=== PATIENT | female | born 1990 | race Caucasian/White ===

== ENCOUNTER 2019-10-22 07:34 | Observation (INO) | payer BC ==
[~2019-10-22] VITALS: Ht 165.1 cm; Wt 100.0 kg
[2019-10-22 07:39] VITALS: BP 108/71
[2019-10-22] MEDS ORDERED: PREN-182 PO (10:55)
[2019-10-22] MEDS ORDERED: FOLI0.4T2 MT (10:55)
== END 2019-10-22 11:18 | disposition home or self-care (01) ==
LOC: ER 07:34 → 8 EST LDRP 10:13 → L&D 10:33
PROVIDERS: ADMIT Obstetrics & Gynecology; ATTEND Obstetrics & Gynecology
DX: O36.8130 Decreased fetal movements, third trimester, not applicable or unspecified (principal); Z3A.34 34 weeks gestation of pregnancy
CPT/HCPCS: 59025; 76815; 76817; 76818; 99281; G0378

== ENCOUNTER 2019-10-26 16:26 | Inpatient (IN) | payer BC ==
[~2019-10-26] VITALS: Ht 165.1 cm; Wt 99.8 kg
[~2019-10-26 16:26] MED LIST: FOLI0.4T2 MT; PREN-182 PO
[2019-10-26] MEDS ORDERED: SODIUM CHLORIDE 0.9% 1,000 ML IV ONE (16:58)
[2019-10-26] MEDS ORDERED: ACETAMINOPHEN 325MG TABLET PO STA (16:58)
[2019-10-26 17:36] LABS: BASOPHILS % 0.3 % (0.0-2.0); HEMATOCRIT. 35.7 % (36.0-48.0); HEMOGLOBIN. 12.3 g/dL (12.0-16.0); LYMPHOCYTES % 15.6 % (20.0-50.0); MEAN CORPUSCULAR HEMOGLOBIN 30.1 pg (28.0-32.0); MEAN CORPUSCULAR VOLUME 87.5 fL (81.0-99.0); MEAN PLATELET VOLUME 8.4 fl (7.4-10.4); MONOCYTES % 3.8 % (2.0-8.0); NEUTROPHILS % 80.3 % (40.0-76.0); PLATELET 186 x1000/uL (130-400); RED BLOOD CELL COUNT 4.09 mill/uL (4.2-5.4); RED CELL DISTRIBUTION WIDTH 14.5 % (11.6-14.6)
[2019-10-26 17:38] LABS: CLARITY URINE CLOUDY (CLEAR); COLOR URINE DARK YELLOW (YELLOW); KETONES URINE 3+ (NEGATIVE); LEUKOCYTE ESTERASE URINE 2+ (NEGATIVE); NITRITE URINE NEGATIVE (NEGATIVE); OCCULT BLOOD URINE NEGATIVE (NEGATIVE); PH URINE 5.5 (4.5-8.0); PROTEIN URINE 1+ (NEGATIVE); SPECIFIC GRAVITY URINE 1.021 (1.005-1.030)
[2019-10-26 17:42] LABS: CHLORIDE 108 mEq/L (98-107)
[2019-10-26 17:44] LABS: INR 0.9; PROTHROMBIN TIME 9.4 sec (9.6-11.0)
[2019-10-26] MEDS ORDERED: ACETAMINOPHEN 325MG TABLET PO ONE (17:45)
[2019-10-26] MEDS ORDERED: CEFTRIAXONE 1 G PREMIX 50 ML IV ONE (18:15)
[2019-10-26] MEDS: SODIUM CHLORIDE 0.9% 1,000 ML IV SCH (21:08)
[2019-10-26] MEDS ORDERED: ONDANSETRON HCL 4MG/2ML INJ IV ONE (21:15)
[2019-10-26] MEDS ORDERED: FAMOTIDINE 20MG/2ML VIAL IV ONE (22:00)
[2019-10-27 01:15] VITALS: BP 107/57
[2019-10-27 04:56] VITALS: BP 122/70
[2019-10-27] MEDS: ACETAMINOPHEN 325MG TABLET PO PRN ×3 (05:11→19:14)
[2019-10-27 06:34] LABS: BASOPHILS % 0.5 % (0.0-2.0); HEMOGLOBIN. 10.8 g/dL (12.0-16.0); LYMPHOCYTES % 14.7 % (20.0-50.0); MEAN CORPUSCULAR HEMOGLOBIN 30.1 pg (28.0-32.0); MEAN CORPUSCULAR VOLUME 86.7 fL (81.0-99.0); MEAN PLATELET VOLUME 8.3 fl (7.4-10.4); MONOCYTES % 2.5 % (2.0-8.0); NEUTROPHILS % 82.3 % (40.0-76.0); PLATELET 182 x1000/uL (130-400); RED BLOOD CELL COUNT 3.58 mill/uL (4.2-5.4); RED CELL DISTRIBUTION WIDTH 14.1 % (11.6-14.6)
[2019-10-27 06:51] LABS: CHLORIDE 110 mEq/L (98-107)
[2019-10-27 08:00] VITALS: BP 120/72
[2019-10-27] MEDS ORDERED: POTASSIUM CHLORIDE 20MEQ TABLET SR PO NR (08:15)
[2019-10-27] MEDS: FAMOTIDINE 20MG/2ML VIAL IV SCH (08:40)
[2019-10-27] MEDS: SODIUM CHLORIDE 0.9% 1,000 ML IV SCH (09:58)
[2019-10-27 12:00] VITALS: BP 122/68
[2019-10-27] MEDS: ONDANSETRON HCL 4MG/2ML INJ IV PRN (13:08)
[2019-10-27 16:00] VITALS: BP 117/65
[2019-10-27] MEDS ORDERED: ALBUTEROL 6.7GM HFA INHALER ORI PRN (17:00)
[2019-10-27] MEDS ORDERED: CEFTRIAXONE 1 G PREMIX 50 ML IV SCH (18:00)
[2019-10-27] MEDS: CEFTRIAXONE 1,000 MG in DEXTROSE 5% WATER 50 ML IV SCH (18:50)
[2019-10-27 20:00] VITALS: BP 122/75
[2019-10-27] MEDS: GUAIFENESIN 600MG ER TABLET PO SCH (20:39)
[2019-10-28] VITALS: BP 115/71
[2019-10-28] MEDS: ACETAMINOPHEN 325MG TABLET PO PRN ×4 (02:36→21:32)
[2019-10-28 04:00] VITALS: BP 117/68
[2019-10-28] MEDS: SODIUM CHLORIDE 0.9% 1,000 ML IV SCH ×2 (04:50→13:19)
[2019-10-28 08:00] VITALS: BP 127/84
[2019-10-28] MEDS: ONDANSETRON HCL 4MG/2ML INJ IV PRN ×2 (08:37→17:14)
[2019-10-28] MEDS: GUAIFENESIN 600MG ER TABLET PO SCH ×2 (08:37→20:29)
[2019-10-28] MEDS: FAMOTIDINE 20MG/2ML VIAL IV SCH (08:37)
[2019-10-28 09:56] LABS: CHLORIDE 111 mEq/L (98-107)
[2019-10-28] MEDS: LOPERAMIDE HCL 2MG CAPSULE PO PRN ×2 (11:05→17:09)
[2019-10-28 12:00] VITALS: BP 114/75
[2019-10-28 12:58] LABS: HEPATITIS B SURFACE ANTIGEN NEGATIVE
[2019-10-28 13:28] LABS: HEPATITIS A AB IGM NEGATIVE (NEGATIVE)
[2019-10-28 16:00] VITALS: BP 105/76
[2019-10-28] MEDS: CEFTRIAXONE 1,000 MG in DEXTROSE 5% WATER 50 ML IV SCH (17:09)
[2019-10-28 20:00] VITALS: BP 100/55
[2019-10-29] VITALS: BP 100/62
[2019-10-29] MEDS: SODIUM CHLORIDE 0.9% 1,000 ML IV SCH (02:20)
[2019-10-29 04:00] VITALS: BP 106/70
[2019-10-29 08:00] VITALS: BP 106/61
[2019-10-29] MEDS: FAMOTIDINE 20MG/2ML VIAL IV SCH (09:10)
[2019-10-29] MEDS: GUAIFENESIN 600MG ER TABLET PO SCH ×2 (09:11→20:01)
[2019-10-29 12:00] VITALS: BP 110/79
[2019-10-29] MEDS: PREDNISONE 20MG TABLET PO SCH (15:16)
[2019-10-29 16:00] VITALS: BP 107/67
[2019-10-29] MEDS: CEFTRIAXONE 1,000 MG in DEXTROSE 5% WATER 50 ML IV SCH (17:30)
[2019-10-29 20:00] VITALS: BP 108/76
[2019-10-30] VITALS: BP 114/70
[2019-10-30 04:00] VITALS: BP 105/52
[2019-10-30 08:00] VITALS: BP 147/94
[2019-10-30] MEDS: FAMOTIDINE 20MG/2ML VIAL IV SCH (09:16)
[2019-10-30] MEDS: GUAIFENESIN 600MG ER TABLET PO SCH (09:16)
[2019-10-30] MEDS: PREDNISONE 20MG TABLET PO SCH (09:17)
[2019-10-30 12:00] VITALS: BP 105/63
[2019-10-30 16:00] VITALS: BP 117/80
[2019-10-30] MEDS: CEFTRIAXONE 1,000 MG in DEXTROSE 5% WATER 50 ML IV SCH (17:33)
[2019-10-30] MEDS ORDERED: PRED10TA PO (18:53)
[2019-10-30] MEDS ORDERED: GUAI600T44 PO (18:53)
[2019-10-30] MEDS ORDERED: PRED5TAB PO (18:53)
[2019-10-30] MEDS ORDERED: TOPUD PO (18:53)
[2019-10-30] MEDS ORDERED: P20 PO (18:53)
[2019-10-30] MEDS ORDERED: IMOD PO (18:53)
[2019-10-30] MEDS ORDERED: ONDA4VIA22 IV (18:53)
[2019-10-30] MEDS ORDERED: ALBU6.7H9 ORI (18:53)
[2019-10-30 20:24] VITALS: BP 104/67
== END 2019-10-30 21:18 | disposition home or self-care (01) | DRG 831 ==
LOC: ER 16:41 → EDBEDREQTM 17:59 → EDBEDREQ 17:59 → MICUSO 19:15 → EDBEDREQ 20:00 → 7WST 23:24
PROVIDERS: ADMIT Obstetrics & Gynecology; ATTEND Obstetrics & Gynecology
DX: O75.3 Other infection during labor (principal); U07.1 COVID-19; J12.89 Other viral pneumonia; A41.89 Other specified sepsis; E43 Unspecified severe protein-calorie malnutrition; J96.00 Acute respiratory failure, unspecified whether with hypoxia or hypercapnia; R17 Unspecified jaundice; O98.813 Other maternal infectious and parasitic diseases complicating pregnancy, third trimester; O98.52 Other viral diseases complicating childbirth; O99.513 Diseases of the respiratory system complicating pregnancy, third trimester; O99.013 Anemia complicating pregnancy, third trimester; O25.13 Malnutrition in pregnancy, third trimester; O99.283 Endocrine, nutritional and metabolic diseases complicating pregnancy, third trimester; K52.9 Noninfective gastroenteritis and colitis, unspecified; E87.6 Hypokalemia; R74.0 Nonspecific elevation of levels of transaminase and lactic acid dehydrogenase [LDH]; Z3A.35 35 weeks gestation of pregnancy
CPT/HCPCS: 36415; 71045; 76805; 76815; 76818; 80048; 80053; 80076; 81003; 82728; 83605; 83615; 84145; 84484; 85025; 85379; 86140; 86705; 86709; 86803; 87340; 93005; 99291; J0696; J2405; J3490; J7030; J7060; J7512

== ENCOUNTER 2019-11-09 04:50 | Inpatient (IN) | payer BC ==
[2019-11-09] VITALS (10 sets, daily range): BP systolic 140–173; BP diastolic 77–94
[~2019-11-09] VITALS: Ht 165.1 cm; Wt 99.8 kg
[~2019-11-09 04:50] MED LIST changes: +ALBU6.7H9 ORI; -FOLI0.4T2 MT; +GUAI600T44 PO; +IMOD PO; +ONDA4VIA22 IV; +P20 PO; +PRED10TA PO; +PRED5TAB PO; +TOPUD PO
[2019-11-09] MEDS ORDERED: DEXT 5%/LR + PITOCIN 20UNITS/L 1,000 ML IV SCH (05:32)
[2019-11-09] MEDS ORDERED: IBUPROFEN 400MG TABLET PO PRN (05:45)
[2019-11-09] MEDS ORDERED: RHO(D) IMMUNE GLOBULIN 300 MCG/SYR IM PRN (05:45)
[2019-11-09 07:49] LABS: HEPATITIS B SURFACE ANTIGEN NEGATIVE
[2019-11-09 08:33] LABS: BASOPHILS % 0.7 % (0.0-2.0); EOSINOPHILS % 0.3 % (0.0-5.0); HEMATOCRIT. 35.2 % (36.0-48.0); HEMOGLOBIN. 11.4 g/dL (12.0-16.0); LYMPHOCYTES % 9.8 % (20.0-50.0); MEAN CORPUSCULAR HEMOGLOBIN 28.9 pg (28.0-32.0); MEAN CORPUSCULAR VOLUME 88.8 fL (81.0-99.0); MEAN PLATELET VOLUME 8.9 fl (7.4-10.4); MONOCYTES % 4.3 % (2.0-8.0); NEUTROPHILS % 84.9 % (40.0-76.0); PLATELET 210 x1000/uL (130-400); RED BLOOD CELL COUNT 3.96 mill/uL (4.2-5.4)
[2019-11-09] MEDS: IBUPROFEN 800MG TABLET PO PRN ×2 (09:22→15:54)
[2019-11-09 13:45] LABS: BASOPHILS % 0.4 % (0.0-2.0); EOSINOPHILS % 0.1 % (0.0-5.0); HEMATOCRIT. 35.8 % (36.0-48.0); LYMPHOCYTES % 16.6 % (20.0-50.0); MEAN CORPUSCULAR HEMOGLOBIN 29.3 pg (28.0-32.0); MEAN CORPUSCULAR VOLUME 87.3 fL (81.0-99.0); MEAN PLATELET VOLUME 8.3 fl (7.4-10.4); MONOCYTES % 6.9 % (2.0-8.0); PLATELET 204 x1000/uL (130-400); RED CELL DISTRIBUTION WIDTH 14.9 % (11.6-14.6)
[2019-11-09 13:53] LABS: CHLORIDE 108 mEq/L (98-107)
[2019-11-09 13:53] LABS: CLARITY URINE CLOUDY (CLEAR); COLOR URINE RED (YELLOW); KETONES URINE NEGATIVE (NEGATIVE); LEUKOCYTE ESTERASE URINE TRACE (NEGATIVE); NITRITE URINE NEGATIVE (NEGATIVE); OCCULT BLOOD URINE 3+ (NEGATIVE); PH URINE 7.5 (4.5-8.0); PROTEIN URINE 1+ (NEGATIVE); UROBILINOGEN URINE 0.2 E.U./dL (0.2-1.0)
[2019-11-09 14:13] LABS: *AMPHETAMINES SCREEN URINE NEGATIVE (NEGATIVE); *BARBITURATES SCREEN URINE NEGATIVE (NEGATIVE); *BENZODIAZEPINES SCREEN URINE NEGATIVE (NEGATIVE); *COCAINE SCREEN URINE NEGATIVE (NEGATIVE); METHADONE URINE SCREEN NEGATIVE (NEGATIVE); OPIATES URINE SCREEN NEGATIVE (NEGATIVE)
[2019-11-09 14:14] LABS: CANNABINOID URINE SCREEN NEGATIVE (NEGATIVE); PHENCYCLIDINE URINE SCREEN NEGATIVE (NEGATIVE)
[2019-11-09 17:31] LABS: D-DIMER 2.59 mg/L FEU (<0.50); INR 0.9; PARTIAL THROMBOPLASTIN TIME 28.9 sec (23.4-31.0); PROTHROMBIN TIME 9.6 sec (9.6-11.0)
[2019-11-09] MEDS ORDERED: LABETALOL HCL 100MG TABLET PO SCH (21:00)
[2019-11-10] VITALS (7 sets, daily range): BP systolic 132–172; BP diastolic 81–105
[2019-11-10] MEDS: IBUPROFEN 800MG TABLET PO PRN (04:26)
[2019-11-10 06:59] LABS: BASOPHILS % 0.4 % (0.0-2.0); EOSINOPHILS % 0.7 % (0.0-5.0); HEMATOCRIT. 33.1 % (36.0-48.0); HEMOGLOBIN. 11.1 g/dL (12.0-16.0); LYMPHOCYTES % 20.7 % (20.0-50.0); MEAN CORPUSCULAR HEMOGLOBIN 29.6 pg (28.0-32.0); MEAN CORPUSCULAR VOLUME 88.2 fL (81.0-99.0); MEAN PLATELET VOLUME 8.3 fl (7.4-10.4); NEUTROPHILS % 72.2 % (40.0-76.0); PLATELET 198 x1000/uL (130-400); RED BLOOD CELL COUNT 3.75 mill/uL (4.2-5.4); RED CELL DISTRIBUTION WIDTH 15.3 % (11.6-14.6)
[2019-11-10] MEDS ORDERED: LABETALOL HCL 100MG TABLET PO SCH (09:00)
== END 2019-11-10 14:15 | disposition home or self-care (01) | DRG 831 ==
LOC: OBSVTOIN 04:50 → L&D 04:50
PROVIDERS: ADMIT Obstetrics & Gynecology; ATTEND Obstetrics & Gynecology
PROC: 10E0XZZ Delivery of Products of Conception, External Approach (ICD-10-PCS; principal; 2019-11-09)
DX: O47.03 False labor before 37 completed weeks of gestation, third trimester (principal); J12.89 Other viral pneumonia; U07.1 COVID-19; O98.52 Other viral diseases complicating childbirth; D62 Acute posthemorrhagic anemia; O10.92 Unspecified pre-existing hypertension complicating childbirth; O99.52 Diseases of the respiratory system complicating childbirth; Z3A.36 36 weeks gestation of pregnancy; Z79.899 Other long term (current) drug therapy
CPT/HCPCS: 36415; 80053; 80305; 81003; 84550; 85025; 85379; 85384; 86592; 86703; 86762; 86850; 86900; 87340; 88307; 99281; J2590